=== PATIENT | female | born 1995 | race African-American/Black ===

== ENCOUNTER 2017-08-22 08:41 | Emergency (ER) | payer OTHER ==
[~2017-08-22] VITALS: Ht 172.7 cm; Wt 81.7 kg
[2017-08-22 08:57] VITALS: BP 136/73
[2017-08-22] MEDS ORDERED: AMOXICILLIN 50500 MG PO ×2 (09:02→09:07)
== END 2017-08-22 09:16 | disposition home or self-care (01) ==
LOC: M.ERS 08:41
DX: J06.9 Acute upper respiratory infection, unspecified (principal); K21.9 Gastro-esophageal reflux disease without esophagitis; J45.909 Unspecified asthma, uncomplicated; F17.210 Nicotine dependence, cigarettes, uncomplicated; Z88.6 Allergy status to analgesic agent

== ENCOUNTER 2017-11-24 14:17 | Emergency (ER) | payer OTHER ==
[~2017-11-24] VITALS: Ht 172.7 cm; Wt 82.1 kg
[~2017-11-24 14:17] MED LIST: AMOXICILLIN 50500 MG PO
[2017-11-24] MEDS ORDERED: ANUSOL-HC25 MG RECTAL (16:04)
[2017-11-24 16:18] VITALS: BP 138/83
== END 2017-11-24 16:19 | disposition home or self-care (01) ==
LOC: M.ERS 14:17
DX: K64.9 Unspecified hemorrhoids (principal); K21.9 Gastro-esophageal reflux disease without esophagitis; J45.909 Unspecified asthma, uncomplicated; F17.210 Nicotine dependence, cigarettes, uncomplicated; Z88.6 Allergy status to analgesic agent